=== PATIENT | female | born 1995 | race African-American/Black ===

== ENCOUNTER → 2016-09-03 | Outpatient (CLI) | payer OTHER ==
[~2016-09-03] MED LIST: HYDROCHLOROTHIA25 MG PO; METFORMIN HCL500 M1 PO
== END | disposition home or self-care (01) ==
LOC: CBAR 08:12
DX: Z01.818 Encounter for other preprocedural examination (principal); E66.01 Morbid (severe) obesity due to excess calories
CPT/HCPCS: 36415; 84443; 86677; G0463

== ENCOUNTER → 2016-09-27 | Outpatient (CLI) | payer OTHER ==
--- NOTE | ~2016-09-27 | CR63 ---
[facility] A Service of [facility] RADIOLOGY TEXT RESULTS PATIENT: LEATHA LUCIANO LOCATION: [facility] : [birth year] UNIT #: [id number] AGE: [address]: Garth Wyatt MD SEX: F ORDER DR: [id number] [place], [place] [address] [id number] O MR#: [id number] Acc #: [id number] NAME: LEATHA LUCIANO : 1995 SEX: F STUDY DATE/TIME: 09/27/2016 8:28 UNIT: [facility] ROOM: STUDY DESCRIPTION: CR Chest 2 View Attending Physician: Garth Wyatt M.D. Referring Physician: Garth Wyatt M.D. Ordering Physician: Garth Wyatt M.D. Primary Care Physician: [facility] MEDICAL IMAGING REPORT This report is preliminary unless electronic signature is present EXAM Chest x-ray HISTORY Preoperative examination prior to Lap-Band surgery. TECHNIQUE Two views of the chest were obtained. FINDINGS PA and lateral examination of the chest upright shows a good expansion of the parenchyma with a normal distribution of the pulmonary vascularity. There is no indication of congestion, effusion, infiltrate, tumor, or nodular density. The pleural reflections and diaphragmatic contours are normal. The cardiac silhouette and mediastinal anatomy is within normal limits. IMPRESSION Normal chest. Dictated by... Alen Washburn M.D. THIS IS AN ELECTRONICALLY VERIFIED REPORT Alen Washburn M.D. at 09/27/2016 3:46 PM BONITAF/pamela TD: 09/27/2016 11:17 JOB #: [id number] [facility] A Service of [facility] RADIOLOGY TEXT RESULTS PATIENT: LEATHA LUCIANO LOCATION: [facility] : [birth year] UNIT #: [id number] AGE: [address]: Garth Wyatt MD SEX: F ORDER DR: MEDICAL IMAGING REPORT Page 1 of 1 COPY
--- NOTE | ~2016-09-27 | EKG ---
PATIENT: LEATHA LUCIANO UNIT #: [id number] Ventricular Rate: 81 BPM Atrial Rate: 81 BPM P-R Interval: 142 ms QRS Duration: 96 ms Q-T Interval: 388 ms QTC Calculation(Bezet): 450 ms P Cambridge: 21 degrees Calculated R Cambridge: 8 degrees Calculated T Cambridge: 14 degrees Diagnosis Line: Normal sinus rhythm Diagnosis Line: Minimal voltage criteria for LVH, may be normal Diagnosis Line: variant Diagnosis Line: Borderline ECG Diagnosis Line: No previous ECGs available Diagnosis Line: Confirmed by AYDIN PAYTON MD ([id number]) on Diagnosis Line: 09/28/2016 1:39:09 PM INTERPRETING MD: MEMO
--- NOTE | ~2016-09-27 | CR97 ---
[facility] A Service of [facility] RADIOLOGY TEXT RESULTS PATIENT: LEATHA LUCIANO LOCATION: [facility] : [birth year] UNIT #: [id number] AGE: [address]: Garth Wyatt MD SEX: F ORDER DR: [id number] [facility] [address] [place], [place] [address] [id number] O MR#: [id number] Acc #: [id number] NAME: LEATHA LUCIANO : 1995 SEX: F STUDY DATE/TIME: 09/27/2016 8:40 UNIT: [facility] ROOM: STUDY DESCRIPTION: CR Esophagram Attending Physician: Garth Wyatt M.D. Referring Physician: Garth Wyatt M.D. Ordering Physician: Garth Wyatt M.D. Primary Care Physician: [facility] MEDICAL IMAGING REPORT This report is preliminary unless electronic signature is present EXAM Barium esophagram. INDICATION Morbid obesity. Preop for Lap-Band surgery. TECHNIQUE The fluoroscopy time 0.4 minutes. 23 fluoroscopic images were taken. FINDINGS The thoracic esophagus is normal in course and caliber. There is no evidence for hiatal hernia or reflux. IMPRESSION Normal esophagram. Dictated by... Sumeet Gilbert M.D. THIS IS AN ELECTRONICALLY VERIFIED REPORT Sumeet Gilbert M.D. at 09/27/2016 4:51 PM LEILA/cipriano TD: 09/27/2016 16:30 JOB #: [id number] MEDICAL IMAGING REPORT Page 1 of 1 COPY
[2016-09-27 09:50] LABS: HEMATOCRIT 40.2 % (35.0-45.0); HEMOGLOBIN 13.5 gm/dL (12.0-16.0); MEAN CELL VOLUME 84.3 FL (83-96); MEAN CORPUSCULAR HEMOGLOBIN 28.4 PG (28-34); MEAN CORPUSCULAR HGB CONC 33.6 g/dL (30-36); MEAN PLATELET VOLUME 8.1 FL (6.5-11.5); RED BLOOD COUNT 4.77 X10e (3.90-5.30); RED CELL DISTRIBUTION WIDTH 13.8 % (11.0-15.5); WHITE BLOOD COUNT 8.8 X10e3 (4.0-10.5)
[2016-09-27 10:36] LABS: ALBUMIN SERUM 3.7 g/dL (3.5-5.0); CALCIUM SERUM 9.2 mg/dL (8.4-10.2); CREATININE SERUM 0.7 mg/dL (0.6-1.4); GLOM FILT RATE Estimated 142.5 mL/min (>60); POTASSIUM 3.5 mmol/L (3.5-5.1); PROTEIN TOTAL SERUM 7.2 g/dL (6.0-8.3)
== END | disposition home or self-care (01) ==
LOC: CRAD 08:18 → CAMB 10:00
PROVIDERS: Surgery
DX: Z01.818 Encounter for other preprocedural examination (principal); K44.9 Diaphragmatic hernia without obstruction or gangrene; E66.01 Morbid (severe) obesity due to excess calories
CPT/HCPCS: 36415; 71020; 74220; 80053; 80061; 84443; 85027; 93005

== ENCOUNTER → 2016-10-30 | Day surgery (SDC) | payer OTHER ==
--- NOTE | ~2016-10-30 | OR ---
Unit #: [id number] #: [id number] Patient: LEATHA LUCIANO [id number] [address] [address] [id number] O MR#: [id number] NAME: LEATHA LUCIANO ROOM: Date of Procedure: 10/30/2016 Admission Date: 10/30/2016 Surgeon: Garth Wyatt M.D. : 1995 Attending Physician: Garth Wyatt M.D. Primary Care Physician: [facility] OPERATIVE REPORT PREOPERATIVE DIAGNOSIS Chronic morbid obesity with BMI of 62. POSTOPERATIVE DIAGNOSES 1. Chronic morbid obesity with BMI of 62. 2. Paraesophageal hiatal hernia. PROCEDURES PERFORMED 1. Laparoscopic adjustable gastric band. 2. Laparoscopic paraesophageal hiatal hernia repair. ACCOUNT SPECIALIST Vijay Aguayo M.D. ANESTHESIA General endotracheal anesthesia. ESTIMATED BLOOD LOSS Minimal. IV FLUIDS 800 crystalloid. COMPLICATIONS None. INDICATIONS FOR PROCEDURE The patient is a 21-year-old with chronic morbid obesity. DESCRIPTION OF PROCEDURE The patient was taken to the operating room and placed in supine position. General anesthesia was induced. The abdomen was prepped and draped. A 3-cm incision was then made left of the midline. A 10-mm Visiport was then placed intraabdominal under direct vision. The abdomen was insufflated to 15 mmHg with CO2. The patient was then placed in a steep reversed Trendelenburg. General inspection of the abdomen revealed what appeared to be a paraesophageal hernia. This was identified with a defect at the diaphragm using anterior palpation with the instrument. We then made a small incision in the subxiphoid region. A Fuentes liver retractor was then placed intraabdominal and used to retract the left lobe of the liver upward to further expose the paraesophageal hernia and GE junction. I then placed a 5-mm port in the right upper quadrant, a 10-mm Unit #: [id number] #: [id number] Patient: LEATHA LUCIANO port in the left upper quadrant, and another 5-mm port in the left lower quadrant. The stomach was retracted medial and downward. Upon retracting the stomach, we took down the paraesophageal ligament, exposing the right and left gretchen at the paraesophageal hernia. Any hernia sac was reduced. We then repaired the paraesophageal hernia using interrupted #0 Ethibond sutures in a uavsno-eg-gphuy type fashion. This formed a snug repair to the anterior esophagus. We then retracted the stomach medially and further exposed the angle of His using Bovie electrocautery. The stomach was then retracted laterally. We then took down the hepatogastric ligament with Bovie electrocautery. This exposed the right gretchen. Using blunt dissection, I created a retrogastric tunnel from this point to the angle of His. The band was then placed intraabdominal through the 10-mm port site. This was then brought through the retrogastric tunnel in a pars flaccida technique. The band was then closed anteriorly to form a 20-mL to 25-mL anterior gastric pouch. The fundus was then secured to the anterior pouch to prevent movement around the stomach using two interrupted #0 Ethibond sutures. A third suture was then used as a gathering stitch from the lesser curve to the anterior stomach, gathering and imbricating the remaining fundus of the stomach. The tubing was then brought out through the midline 10-mm port site. All ports and the Fuentes liver retractor were removed under direct vision with no evidence of abdominal hemorrhage. A polypropylene mesh was then secured to the posterior face of the laparoscopic band port. This was secured using #0 Ethibond suture. This was then cut to shape. The port was then connected to the tubing and placed into a subcutaneous pocket just anterior to the rectus sheath. Its position was then confirmed. All tubing was then placed intraabdominal. The wounds were then closed with interrupted 4-0 Vicryl. The patient tolerated the procedure well and was sent to the recovery room in good condition. Dictated by... [place] Mallory/travis TD: 10/31/2016 11:17 JOB #: [id number] OPERATIVE REPORT Page 1 of 1 X Garth Wyatt MD PROCEDURE OPERATIVE NOTE
--- NOTE | ~2016-10-30 | CR7 ---
[facility] A Service of [facility] RADIOLOGY TEXT RESULTS PATIENT: LEATHA LUCIANO [facility] [birth year] UNIT #: [id number] AGE: [address]: Garth Wyatt MD SEX: F ORDER DR: [id number] [facility] [address] [place], [place] [address] [id number] O MR#: [id number] Acc #: [id number] NAME: LEATHA LUCIANO : 1995 SEX: F STUDY DATE/TIME: 10/30/2016 10:47 UNIT[facility] ROOM: STUDY DESCRIPTION: CR Abdomen Single AP View Attending Physician: Garth Wyatt M.D. Ordering Physician: Garth Wyatt M.D. Primary Care Physician: [facility] MEDICAL IMAGING REPORT This report is preliminary unless electronic signature is present EXAM KUB INDICATIONS Laparoscopic gastric band placement. FINDINGS Bowel gas pattern appears unremarkable. Patient is noted to have left gastric band; phi angle is approximately 84.4 degrees. The catheter tubing appears continuous. IMPRESSION Left gastric band is identified. Phi angles is approximately 84.4 degrees. Dictated by... Karli Cooper M.D. THIS IS AN ELECTRONICALLY VERIFIED REPORT Karli Cooper M.D. at 10/31/2016 7:31 AM AFF/to TD: 10/30/2016 16:05 JOB #: [id number] MEDICAL IMAGING REPORT Page 1 of 1 COPY
[2016-10-30 08:17] LABS: BUN/CREATININE RATIO 8.88; CALCIUM SERUM 9.6 mg/dL (8.4-10.2); CREATININE SERUM 0.9 mg/dL (0.6-1.4); GLOM FILT RATE Estimated 105.3 mL/min (>60); POTASSIUM 3.1 mmol/L (3.5-5.1)
== END | disposition home or self-care (01) ==
LOC: CSUR 10-09 08:00
PROVIDERS: Surgery
DX: E66.01 Morbid (severe) obesity due to excess calories (principal); K44.9 Diaphragmatic hernia without obstruction or gangrene; E11.9 Type 2 diabetes mellitus without complications; I10 Essential (primary) hypertension; Z68.44 Body mass index [BMI] 60.0-69.9, adult; Z88.0 Allergy status to penicillin; Z72.4 Inappropriate diet and eating habits; Z79.84 Long term (current) use of oral hypoglycemic drugs; Z79.899 Other long term (current) drug therapy
CPT/HCPCS: 74000; 80048; 82947; 84703; C1781; J0330; J1170; J1650; J1885; J2250; J2405; J2710; J3010; J3370; L8699